=== PATIENT | male | born 1985 | race Hispanic/Latino ===

== ENCOUNTER 2022-07-20 09:49 | Day surgery (SDC) | payer OTHER ==
[~2022-07-20] VITALS: Ht 167.6 cm; Wt 86.2 kg
[~2022-07-20 09:49] MED LIST: ALBU8TAB INH; LIDOCAINE 2% 100MG/5ML SDV (FOR ANES.) As Ordered ONE; MONT10TA97 PO; NS 1,000 ML IV ONE; OMEP40CA4 PO; VALT500T PO; ZYRTTAB8 PO; propofoL 200 MG/20 ML VIAL As Ordered ONE
[2022-07-20 12:08] VITALS: BP 123/80
== END 2022-07-20 12:10 | disposition home or self-care (01) ==
LOC: M OPP 09:49
PROVIDERS: ATTEND Internal Medicine Gastroenterology
DX: K22.89 Other specified disease of esophagus (principal); K29.60 Other gastritis without bleeding; K44.9 Diaphragmatic hernia without obstruction or gangrene; R12 Heartburn; Z79.1 Long term (current) use of non-steroidal anti-inflammatories (NSAID); Z79.51 Long term (current) use of inhaled steroids; Z79.899 Other long term (current) drug therapy; J45.909 Unspecified asthma, uncomplicated; B00.9 Herpesviral infection, unspecified

== ENCOUNTER → 2022-11-19 | Outpatient (CLI) | payer OTHER ==
[~2022-11-19] MED LIST changes: -LIDOCAINE 2% 100MG/5ML SDV (FOR ANES.) As Ordered ONE; -NS 1,000 ML IV ONE; -propofoL 200 MG/20 ML VIAL As Ordered ONE
== END ==
LOC: M PLAIMG 06:50
PROVIDERS: ATTEND Physician Assistant
DX: M54.2 Cervicalgia (principal)

== ENCOUNTER 2024-05-12 09:14 | Day surgery (SDC) | payer OTHER ==
[~2024-05-12] VITALS: Ht 167.6 cm; Wt 92.4 kg
[~2024-05-12 09:14] MED LIST changes: +ALBU8.5H; +CETI-24 PO; +TRUL10IN
[2024-05-12] MEDS ORDERED: LIDOCAINE 2% 100MG/5ML SDV (FOR ANES.) As Ordered ONE (09:18)
[2024-05-12] MEDS ORDERED: ROCURONIUM BROMIDE 50MG/5ML VIAL As Ordered ONE (09:18)
[2024-05-12] MEDS ORDERED: fentaNYL 100 MCG/2 ML INJECTION As Ordered ONE (09:18)
[2024-05-12] MEDS ORDERED: propofoL 200 MG/20 ML VIAL As Ordered ONE (09:21)
[2024-05-12] MEDS: MIDAZOLAM INJ 2MG/2ML VIAL IV PRN (10:45)
[2024-05-12] MEDS: fentaNYL 100 MCG/2 ML INJECTION IV PRN (10:45)
[2024-05-12] MEDS: LIDOCAINE 1% SDV 5ML VIAL PN ONE (10:49)
[2024-05-12] MEDS: ROPIvacaine 0.5% 30ML VIAL PN ONE (10:49)
[2024-05-12] MEDS: dexAMETHasone 10MG/1ML VIAL PRES.FREE PN ONE (10:49)
[2024-05-12] MEDS: EPINEPHrine INJ 1 MG/ML 1ML AMP As Ordered ONE (11:30)
[2024-05-12] MEDS: ceFAZolin 2 GM/D5W 50 ML IV BAG As Ordered ONE (11:45)
[2024-05-12] MEDS: TRANEXAMIC ACID 100 MG/ML 10ML VIAL As Ordered ONE (12:00)
[2024-05-12] MEDS ORDERED: SUGAMMADEX SODIUM 500 MG/5 ML VIAL (BRIDION) As Ordered ONE (12:02)
[2024-05-12] MEDS ORDERED: ONDANSETRON 4MG 2ML VIAL As Ordered ONE (12:02)
[2024-05-12] MEDS ORDERED: ePHEDrine SULFATE 25 MG/5 ML(5MG/ML) SYRINGE As Ordered ONE (12:03)
[2024-05-12] MEDS ORDERED: ACETAMINOPHEN 1000MG 100ML IV BAG As Ordered ONE (12:19)
[2024-05-12] MEDS: ceFAZolin SOD 2 GM in IV 1 EA IV ONE (12:44)
[2024-05-12] MEDS: TRANEXAMIC ACID 100 MG/ML 10ML VIAL IV ONE (12:47)
[2024-05-12] MEDS: VANCOMYCIN 1000MG/20ML VIAL As Ordered ONE (14:06)
[2024-05-12] MEDS ORDERED: LR 1,000 ML IV SCH (14:30)
[2024-05-12] MEDS ORDERED: fentaNYL 100 MCG/2 ML INJECTION IV PRN (14:30)
[2024-05-12] MEDS ORDERED: HYDROMORPHONE HCL 0.5 MG/ 0.5 ML SYRINGE IV PRN (14:30)
[2024-05-12] MEDS ORDERED: ONDANSETRON 4MG 2ML VIAL IV PRN (14:30)
[2024-05-12] MEDS: LIDOCAINE W/EPINEPHRINE 1% 20ML VIAL As Ordered ONE (14:30)
[2024-05-12] MEDS ORDERED: oxyCODONE 5MG TAB PO PRN (14:30)
[2024-05-12 16:00] VITALS: BP 128/62; TEMP 97.1; O2SAT 96
== END 2024-05-12 16:10 | disposition home or self-care (01) ==
LOC: M SDC 09:14
PROVIDERS: ATTEND Orthopaedic Surgery
DX: M25.511 Pain in right shoulder (principal); M75.51 Bursitis of right shoulder; K21.9 Gastro-esophageal reflux disease without esophagitis; J45.909 Unspecified asthma, uncomplicated; Z79.899 Other long term (current) drug therapy
CPT/HCPCS: 23120; 29823; 29826; 64415; J0131; J0171; J0690; J1100; J2250; J2405; J2795; J3010; J3370